=== PATIENT | female | born 1990 | race Two or more races ===

== ENCOUNTER 2020-04-02 20:37 | Inpatient (IN) | payer OTHER ==
[~2020-04-02] VITALS: Ht 154.9 cm; Wt 80.3 kg
[2020-04-02] MEDS ORDERED: IRON325 MG PO (21:13)
[2020-04-02] MEDS ORDERED: PRENATAL TABLE1 EAC1 PO (21:13)
== END 2020-04-04 12:35 | disposition home or self-care (01) | DRG 807 ==
LOC: LDR 20:37 → OB/GYN 20:37
PROVIDERS: ADMIT Specialist; ATTEND Specialist
PROC: 10D07Z8 Extraction of Products of Conception, Other, Via Natural or Artificial Opening (ICD-10-PCS; principal; 2020-04-02)
PROC: 4A1HXFZ Monitoring of Products of Conception, Cardiac Rhythm, External Approach (ICD-10-PCS; 2020-04-02)
PROC: 10907ZC Drainage of Amniotic Fluid, Therapeutic from Products of Conception, Via Natural or Artificial Opening (ICD-10-PCS; 2020-04-02)
PROC: 3E033VJ Introduction of Other Hormone into Peripheral Vein, Percutaneous Approach (ICD-10-PCS; 2020-04-02)
DX: O80 Encounter for full-term uncomplicated delivery (principal); Z37.0 Single live birth; Z20.828 Contact with and (suspected) exposure to other viral communicable diseases; Z3A.38 38 weeks gestation of pregnancy